=== PATIENT | female | born 1985 | race Caucasian/White ===

== ENCOUNTER 2018-03-03 12:40 | Emergency (ER) | payer OTHER, SELFPAY ==
[2018-03-03 12:41] VITALS: BP 101/63; PULSE 84; RESP 18; TEMP 36.2; O2SAT 97; BMI 37.3
[2018-03-03] MEDS: 0.9% Normal Saline 1,000 ML 125 ML IV (13:01)
[2018-03-03] MEDS: Ondansetron 4 MG/2 ML Vial IV (13:01)
[2018-03-03 13:03] LABS: Absolute Lymphocyte Count 1.03 X10^3/ul (0.83-4.51); Basophil# 0.02 X10^3/uL; Basophil% 0.3 % (0-1); Eosinophil# 0.04 X10^3/uL; Eosinophils% 0.7 % (0-5); Hematocrit 40.4 % (37-47); Hemoglobin 13.1 g/dl (12.0-15.0); Lymphocyte # 1.03 X10^3/ul (4.0); Lymphocyte % 17.7 % (19-41); Mean Corp Hgb Conc 32.4 g/gl (32-36); Mean Corpuscular Hgb 27.6 pg (27.0-32.0); Mean Corpuscular Volume 85.1 fL (81-99); Mean Platelet Vol. 9.4 fl (6.2-12.0); Monocyte# 0.78 X10^3/uL; Monocyte% 13.4 % (0-10); Neutrophil # 3.95 X10^3/uL (2.7-7.7); Neutrophil % 67.9 % (47-70); POSITIVE COUNT NO; POSITIVE DIFFERENTIAL NO; POSITIVE MORPHOLOGY NO; Platelet Count 244 K/mm3 (150-450); RBC Distribution Width CV 14.2 % (11.6-14.6); RBC Distribution Width SD 43.7 fl (35.1-43.9); Red Blood Count 4.75 M/mm3 (4.2-5.4); White Blood Count 5.8 K/mm3 (4.4-11.0)
[2018-03-03] MEDS: morphine 8 MG/ML Syringe IV (13:05)
--- NOTE | 2018-03-03 13:05 | CT_ITS ---
STUDY: CT ABDOMEN AND PELVIS WITHOUT CONTRAST REASON FOR EXAM: Female, 32 years old. ABD PAIN,N/V/D SURG-TUBAL RADIATION DOSAGE (If Supplied By Facility): CTDIvol = ( 15.99 ) mGy, DLP = ( 842.70 ) mGycm TECHNIQUE: Transaxial images were obtained from the dome of the diaphragm to the symphysis pubis without oral contrast, and without intravenous contrast. Sagittal and coronal images were reconstructed. Individualized dose optimization techniques were used for this CT. COMPARISON: None. FINDINGS: The visualized lung bases are unremarkable. The visualized portions of the heart are within normal limits. Normal liver. There are gallstones.. Normal spleen. Normal pancreas. Normal bilateral adrenal glands. Normal right kidney. Normal left kidney. Normal visualized stomach. Normal small intestine. Normal colon. The appendix is suggested but not definitely seen. No appendicitis is demonstrated.. Normal abdominal aorta. Normal inferior vena cava. Normal retroperitoneum. Normal urinary bladder. Normal abdominal wall. There is L5-S1 degenerative disc disease. CT/Abdomen/Pelvis without Cont IMPRESSION: There are gallstones. A sonogram could provide further evaluation if clinically indicated. Electronically Signed: Tisha Prater MD at 14:09 EDT , Service support ,
--- NOTE | 2018-03-03 13:08 | ED.DCSUM_ITS ---
- ER Visit Summary Date of Service: 03/03/18 Chief Complaint: [] Diffuse crampy abdominal pain since Sunday diarrhea since Sunday History of Present Illness: The patient is a 32 F [] is a past history reports symptoms as above diarrhea watery she has had no vomiting no fever symptoms have persisted. She went to [facility] emergency department twice yesterday reports she was treated each time of discharge medications her symptoms have persisted so she came in to [facility] for evaluation. She has no history of GI elements in fact she denies any past history of any kind she is on no medications denies no vaginal bleeding or vaginal discharge her urine output has been normal she has had no diarrhea today she has not been exposed anyone has been ill or bad food or antibiotics Physical Examination: [] No distress her vital signs are within normal range is a large person she takes her hand draws it in a circular fashion across her abdomen there is no focality to her complaints of pain her head neck exam unremarkable lungs are clear heart tones are normal the abdomen soft there is no rebound guarding organomegaly and no focal area of pain I can shake her abdomen it does not cause any pain her backs unremarkable upper lower extremities unremarkable she is walking in the department with no difficulty Test Results: [] Emergency Department Course and Treatment: [] The patient's screening labs and studies are generally unremarkable see those reports, the CT shows nothing acute it did note gallstones with no signs of cholecystitis on the CT nor there are any signs on the labs again her exam is this diffuse crampy pain there is no focal right upper quadrant pain right lower quadrant pain or anything else it is acute of explained the findings to her I explained the concept that the gallstones could be causing some of her symptoms or could be unrelated she will be started on Bentyl a bland diet and she will follow-up with her doctors she is scheduled to see for follow-up tomorrow and return for change in symptoms we will provide her all of her study results so the follow-up doctors have those Treatment Plan: [] Disposition: [] Home stable Impression: [] Nonspecific diffuse crampy abdominal pain with diarrhea etiology unclear, gallstones on CT This note was generated with [employer] software. It may contain incorrect words, spelling, and punctuation that were not noted in review of the chart prior to signing ED Disposition - Plan for ED Patient: Chief Complaint: Abd Pain Referrals: NOT,DEFINED [NON-STAFF] -
[2018-03-03 13:13] LABS: Bacteria 0 SEEN /hpf (None Seen); Mucous, Urine 0 SEEN /hpf (<or=2+); Red Blood Cells-Urine 0 SEEN /hpf (0-5)
[2018-03-03 13:15] LABS: Color, Urine Yellow (Yellow); Glucose, Dipstick Normal (Normal); Ketone-Dipstick Negative (Negative); Leukocyte Esterase-Dipstick 25 /ul (Negative); Nitrite-Dipstick Negative (Negative); Occult Blood-Urine 50 /ul (Negative); Protein-Dipstick 30 mg/dl (Negative); Specific Gravity, Urine 1.015 (1.002-1.030); Urine Clarity Clear (Clear); Urine Urobilinogen Normal (Normal)
[2018-03-03 13:21] LABS: Urine Bilirubin Dipstick 1 mg/dL (Negative)
[2018-03-03 13:22] LABS: Squamous Epithelial Cells - UA 0-5 SEEN /hpf (5-10); White Blood Cells 0-5 SEEN /hpf (0-5)
[2018-03-03 13:24] LABS: AST(SGOT) 23 U/L (15-37); Alanine Aminotransfer ALT/SGPT 18 U/L (13-56); Albumin, Serum 3.5 g/dL (3.2-5.0); Alkaline Phosphatase 64 U/L (45-117); Anion Gap 6 (5-15); BUN 7 mg/dL (7-18); BUN/Creat Ratio 8.8 RATIO (10-20); Chloride 106 mmol/L (98-107); EST Glomerular Filtration Rate 90 mL/min (>60); Est Glom Filt Rate - Afr Amer 109 mL/min (>60); Estimated Creatinine Clearance 99.99 ml/min; Globulin 4.2 g/dL (2.2-4.2); Glucose 95 mg/dL (74-106); Lipase 169 U/L (73-393); Potassium 3.3 mmol/L (3.5-5.1); Protein, Total 7.7 g/dL (6.4-8.2); Sodium Level 139 mmol/L (136-145)
[2018-03-03 13:29] LABS: Pregnancy, Serum, hCG Quali. NEGATIVE Negative (0-9 Nonpreg)
[2018-03-03 14:41] VITALS: BP 123/65; PULSE 65; RESP 16; O2SAT 96
--- NOTE | 2018-03-03 15:06 | ED.DEP ---
ED Disposition - Plan for ED Patient: Chief Complaint: Abd Pain Instructions: ED Abdominal Pain Unkn Cause Prescriptions: Dicyclomine HCl [Bentyl] 20 mg PO TIDAC #20 cap Referrals: NOT,DEFINED [NON-STAFF] - Additional Instructions: Follow-up with her physicians are scheduled to see tomorrow please take all of your test results from today's visit with you
[2018-03-03 15:44] VITALS: BP 123/57; PULSE 70; RESP 16; O2SAT 99
== END 2018-03-03 15:45 | disposition home or self-care (01) ==
PROVIDERS: Emergency Provider Emergency Medicine
DX: R10.84 Generalized abdominal pain (principal); R19.7 Diarrhea, unspecified; K80.80 Other cholelithiasis without obstruction
CPT/HCPCS: 74176; 80048; 80076; 81001; 83690; 84703; 85025; 96361; 96374; 96375; 99283; J7030; A4216; J2405

== ENCOUNTER 2018-03-07 23:04 | Observation (INO) | payer MEDICAID, SELFPAY ==
[2018-03-07 23:05] VITALS: BP 136/98; PULSE 98; RESP 24; TEMP 36.1; O2SAT 98; BMI 37.2
--- NOTE | 2018-03-07 23:57 | US_ITS ---
US Abdomen Limited (quadrant) INDICATION: RUQ PAIN COMPARISON: CT from March 03, 2018 TECHNIQUE: Ultrasonographic grayscale and limited Doppler investigation of the right upper quadrant FINDINGS: The liver demonstrated normal echogenicity and measures 14.4 cm. No evidence of intra-or extrahepatic biliary ductal dilatation. Common bile duct measures 6 mm. The gallbladder is contracted and contains multiple shadowing stones. Gallbladder wall measures 3 mm. Ultrasonographic Gallo sign is positive. There is no evidence of pericholecystic fluid. Visual portions of the head of the pancreas are within normal limits. Body and tail are not seen due to overlying bowel gas. The right kidney measures 13 cm in length and is without evidence of hydronephrosis. US/Gallbladder IMPRESSION: Cholelithiasis with positive ultrasonographic Gallo sign. Gallbladder is nondistended and there is no evidence of pericholecystic fluid. Consider further evaluation with no medicine hepatobiliary scan . at 0038 Reported and signed by: Erika Qureshi MD Electronically Signed: Erika Qureshi MD at 0:37 EDT Tel , Service support ,
[2018-03-07 23:59] LABS: Anion Gap 8 (5-15); BUN 11 mg/dL (7-18); BUN/Creat Ratio 14.2 RATIO (10-20); Calcium,Total 9.3 mg/dL (8.5-10.1); Chloride 105 mmol/L (98-107); Creatinine, Serum 0.78 mg/dL (0.55-1.02); EST Glomerular Filtration Rate 93 mL/min (>60); Est Glom Filt Rate - Afr Amer 112 mL/min (>60); Estimated Creatinine Clearance 102.56 ml/min; Glucose 100 mg/dL (74-106); Potassium 3.2 mmol/L (3.5-5.1); Sodium Level 134 mmol/L (136-145)
[2018-03-08] VITALS (12 sets, daily range): BP systolic 93–127; BP diastolic 47–63; PULSE 55–76; RESP 14–18; TEMP 36–36.9; O2SAT 96–100; BMI 36.1
[2018-03-08] LABS: Color, Urine Yellow (Yellow); Glucose, Dipstick Normal (Normal); Ketone-Dipstick 15 mg/dl (Negative); Leukocyte Esterase-Dipstick 25 /ul (Negative); Nitrite-Dipstick Negative (Negative); Occult Blood-Urine 50 /ul (Negative); Protein-Dipstick 30 mg/dl (Negative); Urine Clarity Sl. Cloudy (Clear); Urine Urobilinogen 1 mg/dl (Normal)
--- NOTE | 2018-03-08 | IMM_PTH ---
PATIENT: LINDA MCNEAL LOC: MS3 U#:[id number] AGE/SX: 32/F [place] [facility] [place]: Dr. Jayna Childs MD : 1985 BED: 1 DIS: 03/08/2018 SPEC #: [id number] RECD: 03/11/18 11:25 STATUS: SARA LARA #: [id number] MARCIO: 03/08/18 00:[address]: Jayna Childs DEPT: IMMUNOHISTOCHEMISTRY RECD BY: Princess Hubbard ENTERED: 03/11/18 11:26 SP TYPE: IMMUNO OTHR DR: No Primary Care Phys Tissues: A - Stomach, NOS Procedures: H Pylori (initial) PHYSICIAN & INSTITUTION [place] [id number] SPECIMEN INFORMATION: Tissue Source: A ? Antrum biopsy Clinical Info: Epigastric pain, left increased quad pain Specimen Number: [id number] CPT code: 78119 METHODOLOGY: Deparaffinized sections of prefer/formalin-fixed tissue or PAP/DQ stained slides are incubated with monoclonal/polyclonal antibodies/oligonucleotide probes. Localization is made via biotin free immunoperoxidase method. Appropriate controls are performed and reacted as expected. Results on target cell population are indicated in the following table: RESULTS: ANTIBODY / CLONE RESULT Block A H Pylori (polyclonal) positive These tests were developed and their performance characteristics determined by [facility]. They may not have been cleared or approved by the U.S. Food and Drug Administration. The FDA has determined that such clearance or approval is not necessary. INTERPRETATION: A. Antrum, biopsy: Positive for Helicobacter pylori organisms. AM:marie 03/12/18
[2018-03-08 00:02] LABS: Urine Bilirubin Dipstick 1 mg/dL (Negative)
[2018-03-08 00:05] LABS: Absolute Lymphocyte Count 2.27 X10^3/ul (0.83-4.51); Absolute Neutrophil Count 5.8 X10^3/uL (2.0-7.7); Basophil# 0.08 X10^3/uL; Basophil% 0.8 % (0-1); Eosinophil# 0.36 X10^3/uL; Eosinophils% 3.7 % (0-5); Hematocrit 43.3 % (37-47); Hemoglobin 14.8 g/dl (12.0-15.0); Lymphocyte # 2.27 X10^3/ul (4.0); Lymphocyte % 23.5 % (19-41); Mean Corp Hgb Conc 34.2 g/gl (32-36); Mean Corpuscular Hgb 27.3 pg (27.0-32.0); Mean Corpuscular Volume 79.9 fL (81-99); Mean Platelet Vol. 9.5 fl (6.2-12.0); Monocyte# 1.15 X10^3/uL; Monocyte% 11.9 % (0-10); Neutrophil # 5.79 X10^3/uL (2.7-7.7); Platelet Count 378 K/mm3 (150-450); RBC Distribution Width CV 13.6 % (11.6-14.6); Red Blood Count 5.42 M/mm3 (4.2-5.4); White Blood Count 9.7 K/mm3 (4.4-11.0)
[2018-03-08 00:08] LABS: POSITIVE COUNT NO; POSITIVE DIFFERENTIAL NO; POSITIVE MORPHOLOGY NO
[2018-03-08 00:13] LABS: Bacteria RARE /hpf (None Seen); Mucous, Urine 1+ /hpf (<or=2+); Red Blood Cells-Urine 0-5 SEEN /hpf (0-5); Squamous Epithelial Cells - UA 0-5 SEEN /hpf (5-10); White Blood Cells 0-5 SEEN /hpf (0-5)
[2018-03-08] MEDS: 0.9% Normal Saline 1,000 ML 1000 ML IV (00:30)
[2018-03-08] MEDS: Ondansetron 4 MG/2 ML Vial IV (00:30)
[2018-03-08] MEDS: HYDROmorphone 1 MG/ML Syringe IV (00:30)
[2018-03-08 01:14] LABS: Pregnancy, Serum, hCG Quali. NEGATIVE Negative (0-9 Nonpreg)
[2018-03-08 01:19] LABS: AST(SGOT) 28 U/L (15-37); Alanine Aminotransfer ALT/SGPT 43 U/L (13-56); Albumin, Serum 3.9 g/dL (3.2-5.0); Alkaline Phosphatase 68 U/L (45-117); Bilirubin, Direct 0.17 mg/dL (0.00-0.30); Globulin 3.7 g/dL (2.2-4.2); Lipase 266 U/L (73-393); Protein, Total 7.6 g/dL (6.4-8.2)
--- NOTE | 2018-03-08 03:32 | ED.VISSUMM ---
- ER Visit Summary Date of Service: 03/08/18 Chief Complaint: [Abdominal pain] History of Present Illness: The patient is a 32 F [presents to the emergency department with abdominal pain that started about a week ago. Patient rates her pain a 9 out of 10. Patient describes her pain as upper abdomen. Patient has had diarrhea for 4 days. Patient has had nausea. When the pain first started patient had vomiting. Patient has had 2 other trips to the emergency department for this and is had blood work including a CT scan of the abdomen and pelvis that showed some gallstones 6 days ago. Patient denies any fever. She denies urinary symptoms. Patient states that she took an antidiarrheal yesterday and afterwards started having black stool. Patient brought the antidiarrheal with her and it does contain bismuth.] Physical Examination: [HEENT-PERRLA, EOMI. Cranial nerves II through XII grossly intact. TMs clear. Mucous membranes moist. No adenopathy. Cardiovascular-regular rate and rhythm without murmur or ectopy Lungs-clear to auscultation, chest wall stable without crepitus or subcu emphysema Abdomen-normoactive bowel sounds, soft. Patient has tenderness palpation over the right upper quadrant and epigastric region. Patient has a positive Gallo sign. No rebound, rigidity, or peritoneal signs. Rectal exam-there was brown stool that was Hemoccult positive, no masses in the rectal vault Extremities-intact ?4, normal range of motion, normal pulses, atraumatic] Test Results: [CBC with differential obtained showed a white blood cell count of 9.7, hemoglobin 14.8, hematocrit 43, platelets 378. Chemistries unremarkable other than a slightly depressed potassium at 3.2. LFTs were normal. Lipase was 266. Urinalysis was normal. HCG was negative. Ultrasound of the gallbladder obtained showed gallstones but no evidence of pericholecystic fluid, common bile duct was 6 mm, gallbladder wall measures 3 mm.] Emergency Department Course and Treatment: [Patient was medicated with Dilaudid for pain. Patient was given Protonix IV.] Treatment Plan: [Admit] for further workup and evaluation. With continued and ongoing pain patient may warrant further evaluation with possibly HIDA scan or EGD. Most likely in the differential are biliary dyskinesia versus peptic ulcer disease/gastritis. Disposition: [Admit] Impression: [Intractable abdominal pain Cholelithiasis] This note was generated with [employer] dictation software. It may contain incorrect words, spelling, and punctuation that were not noted in review of the chart prior to signing ED Disposition - Plan for ED Patient: Chief Complaint: Abd Pain Referrals: Care Physician,No Primary [Primary Care Provider] -
--- NOTE | 2018-03-08 08:19 | PCM.HP.STD ---
History of Present Illness Date of Admission: 03/08/18 Chief Complaint: epigastric pain, n/v The patient is a 32 year old F presented to the ER due to upper abdominal pain, nausea vomiting, diarrhea. Patient states that a week ago last Sunday she noticed that she had an upset stomach she only had coffee did not really eat most the day than 8 some rice and beans at 7 PM and had nausea and vomiting which continued until Sunday. Patient did not notice any obvious abdominal pain just soreness from the nausea and vomiting. She went to the ER at [facility] on Sunday night and was given some pain meds/GI cocktail however by Sunday a.m. she began to have the crampy abdominal pain and epigastric pain and went back to the ER at [facility] on Sunday morning. CT abdomen pelvis was done which only showed some gallstones nothing else acute normal labs patient was given fluids and a GI cocktail along with some Bentyl and sent home and told to follow-up with PCP. Patient states that the Bentyl did help ease the crampiness. However she did have diarrhea which was a light brown to light green color and she was doing better initially but then she states she was weak due to the diarrhea and also had some epigastric pain. Patient did get some Kaopectate yesterday and states she had black diarrhea after taking the medication. Yesterday patient states her pain was constant and a 8/10 even when she woke up, so patient went back to the ER her labs were all within normal limits including LFTs. Patient had an ultrasound of the gallbladder which showed gallstones, no lilibeth-cholecystic fluid, per the read wall was 3 mm however my read it was less than 3 mm. Currently patient states her pain is a 4/10. But she also stated yesterday and she did have some lower abdominal pain as well. Patient denies any history of right upper quadrant pain after eating previous to last Sunday. Patient states that when she did eat yesterday her pain was worst immediately after she ate or as she thought it hit the stomach. Past Medical History Allergies No Known Allergies Allergy (Verified 03/07/18 23:04) Home Medications: Ambulatory Orders Medication Instructions Recorded Dicyclomine HCl [Bentyl] 20 mg PO TIDAC 03/08/18 Dicyclomine HCl [Bentyl] 20 mg PO TIDAC #42 cap 03/08/18 Pantoprazole Sodium [Protonix] 40 mg PO DAILY #30 tab 03/08/18 Sucralfate [Carafate] 1 gm PO 4X/DAY #120 tab 03/08/18 bismuth subsalicylate 525 mg/15 mL 525 mg PO Q30-60M PRN #354 ml 03/12/18 oral suspension metronidazole 250 mg tablet 250 mg PO Q6H #56 tab 03/12/18 ranitidine 150 mg tablet 150 mg PO BID #28 tab 03/12/18 Surgical History: tonsillectomy, - - tubal Psychiatric History: No pertinent psych hx 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 Lives: - - her 2 boys Smoking Status: Never smoker Alcohol: Occasional Drugs: None - *Family History Maternal History Items: No pertinent history Review of Systems Constitutional: Denies: Chills, Fever Eyes: Denies: Blurred vision HEENT: Denies: Difficulty Swallowing Cardiovascular: Denies: Chest Pain Respiratory: Denies: Shortness of Breath Gastrointestinal: Reports: Abdominal Pain, Diarrhea Genitourinary: Denies: Dysuria Musculoskeletal: Denies: Joint Pain Skin: Denies: Rash Neurological: Denies: Numbness, Tingling Psychiatric: Denies: Anxiety, Depression Hematologic/ Lymphatic: Denies: Easy Bruising, Easy Bleeding VTE Information - Inpt Only VTE Present on Admission: Yes VTE Mechan Device Prophylaxis: SCD's VTE Pharm Prophylaxis ordered?: No Reason prophylaxis not ordered:: Treatment Not Indicated - Physical Exam General: Alert, Oriented x3, Cooperative, No apparent distress HEENT: Atraumatic, Normocephalic Lungs: Normal air movement Cardiovascular: Regular rate Abdomen: Soft, Non Tender, Tender - LUQ & epigastic, no guarding/rebound Extremities: No clubbing, No cyanosis, No edema Skin: No rashes Neurological: Cranial nerves II-XII grossly intact Psych/Mental Status: Normal Affect Vital Signs Temp Pulse Resp BP Pulse Ox 97.8 F 60 14 99/47 L 98 03/08/18 05:32 03/08/18 05:32 03/08/18 05:32 03/08/18 05:32 03/08/18 05:32 Oxygen Delivery Method Room Air Weight: 230 lb 5 oz Body Mass Index (BMI) 36.1 Intake and Output for Last 24 Hours 03/06/18 03/07/18 03/08/18 23:59 23:59 23:59 Intake Total 234 / 234 Balance 234 / 234 Assessment/Plan 32-year-old female with left upper quadrant, epigastric abdominal pain, diarrhea, nausea and vomiting, cholelithiasis 1. Patient's abdominal pain is mostly left upper quadrant and epigastric. Her history of upper abdominal pain, nausea/vomiting/diarrhea, pain occurring right after eating or without eating is more consistent with gastric etiology like gastritis. Patient does have cholelithiasis on CT as well as ultrasound the ultrasound showed gallstones, no pericholecystic fluid and the wall is measured to be 3 mm however on my measurements the wall is less than 3 mm. Discussed with patient that her pain is likely due to gastritis versus gallstones. Discussed the typical symptoms of gallstones as well as gastric etiology with the patient as well as the anatomy concerning the gallbladder and the procedure of laparoscopic cholecystectomy. Recommend doing an EGD with biopsy today and trying to resolve her left upper quadrant pain. Discussed with patient that her gallstones may also cause her a problem in the future; however, we will will first deal with the epigastric and left upper quadrant pain likely treated with Protonix and Carafate. If she continues to have epigastric or any right upper quadrant pain about 30 minutes after eating would recommend at that time a laparoscopic cholecystectomy. Patient was agreeable with current plan. We will keep n.p.o./IV fluids until the EGD. Discussed risk including but not limited to bleeding, perforation (requiring additional procedures), and anesthesia. She had no further questions at this time is agreeable to proceed with the EGD. Jayna Childs M.D. Pager: [phone] [facility] [address] [place] [address], [address] [place] [address] Office: [phone] Code Visit OBSV E&M: 87007 Observ/hosp same date L1
--- NOTE | 2018-03-08 08:23 | HP.PCM_ITS ---
History of Present Illness Date of Admission: 03/08/18 Chief Complaint: epigastric pain, n/v The patient is a 32 year old F presented to the ER due to upper abdominal pain, nausea vomiting, diarrhea. Patient states that a week ago last Sunday she noticed that she had an upset stomach she only had coffee did not really eat most the day than 8 some rice and beans at 7 PM and had nausea and vomiting which continued until Sunday. Patient did not notice any obvious abdominal pain just soreness from the nausea and vomiting. She went to the ER at [facility] on Sunday night and was given some pain meds/GI cocktail however by Sunday a.m. she began to have the crampy abdominal pain and epigastric pain and went back to the ER at [facility] on Sunday morning. CT abdomen pelvis was done which only showed some gallstones nothing else acute normal labs patient was given fluids and a GI cocktail along with some Bentyl and sent home and told to follow-up with PCP. Patient states that the Bentyl did help ease the crampiness. However she did have diarrhea which was a light brown to light green color and she was doing better initially but then she states she was weak due to the diarrhea and also had some epigastric pain. Patient did get some Kaopectate yesterday and states she had black diarrhea after taking the medication. Yesterday patient states her pain was constant and a 8/10 even when she woke up, so patient went back to the ER her labs were all within normal limits including LFTs. Patient had an ultrasound of the gallbladder which showed gallstones, no lilibeth-cholecystic fluid, per the read wall was 3 mm however my read it was less than 3 mm. Currently patient states her pain is a 4/10. But she also stated yesterday and she did have some lower abdominal pain as well. Patient denies any history of right upper quadrant pain after eating previous to last Sunday. Patient states that when she did eat yesterday her pain was worst immediately after she ate or as she thought it hit the stomach. Past Medical History Allergies No Known Allergies Allergy (Verified 03/07/18 23:04) Home Medications: Ambulatory Orders Medication Instructions Recorded Dicyclomine HCl [Bentyl] 20 mg PO TIDAC 03/08/18 Dicyclomine HCl [Bentyl] 20 mg PO TIDAC #42 cap 03/08/18 Pantoprazole Sodium [Protonix] 40 mg PO DAILY #30 tab 03/08/18 Sucralfate [Carafate] 1 gm PO 4X/DAY #120 tab 03/08/18 bismuth subsalicylate 525 mg/15 mL 525 mg PO Q30-60M PRN #354 ml 03/12/18 oral suspension metronidazole 250 mg tablet 250 mg PO Q6H #56 tab 03/12/18 ranitidine 150 mg tablet 150 mg PO BID #28 tab 03/12/18 Surgical History: tonsillectomy, - - tubal Psychiatric History: 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 Lives: - - her 2 boys Smoking Status: Never smoker Alcohol: Occasional Drugs: None - *Family History Maternal History Items: No pertinent history Review of Systems Constitutional: Denies: Chills, Fever Eyes: Denies: Blurred vision HEENT: Denies: Difficulty Swallowing Cardiovascular: Denies: Chest Pain Respiratory: Denies: Shortness of Breath Gastrointestinal: Reports: Abdominal Pain, Diarrhea Genitourinary: Denies: Dysuria Musculoskeletal: Denies: Joint Pain Skin: Denies: Rash Neurological: Denies: Numbness, Tingling Psychiatric: Denies: Anxiety, Depression Hematologic/ Lymphatic: Denies: Easy Bruising, Easy Bleeding VTE Information - Inpt Only VTE Present on Admission: Yes VTE Mechan Device Prophylaxis: SCD's VTE Pharm Prophylaxis ordered?: No Reason prophylaxis not ordered:: Treatment Not Indicated - Physical Exam General: Alert, Oriented x3, Cooperative, No apparent distress HEENT: Atraumatic, Normocephalic Lungs: Normal air movement Cardiovascular: Regular rate Abdomen: Soft, Non Tender, Tender - LUQ & epigastic, no guarding/rebound Extremities: No clubbing, No cyanosis, No edema Skin: No rashes Neurological: Cranial nerves II-XII grossly intact Psych/Mental Status: Normal Affect Vital Signs Temp Pulse Resp BP Pulse Ox 97.8 F 60 14 99/47 L 98 03/08/18 05:32 03/08/18 05:32 03/08/18 05:32 03/08/18 05:32 03/08/18 05:32 Oxygen Delivery Method Room Air Weight: 230 lb 5 oz Body Mass Index (BMI) 36.1 Intake and Output for Last 24 Hours 03/06/18 03/07/18 03/08/18 23:59 23:59 23:59 Intake Total 234 / 234 Balance 234 / 234 Assessment/Plan 32-year-old female with left upper quadrant, epigastric abdominal pain, diarrhea , nausea and vomiting, cholelithiasis 1. Patient's abdominal pain is mostly left upper quadrant and epigastric. Her history of upper abdominal pain, nausea/vomiting/diarrhea, pain occurring right after eating or without eating is more consistent with gastric etiology like gastritis. Patient does have cholelithiasis on CT as well as ultrasound the ultrasound showed gallstones, no pericholecystic fluid and the wall is measured to be 3 mm however on my measurements the wall is less than 3 mm. Discussed with patient that her pain is likely due to gastritis versus gallstones. Discussed the typical symptoms of gallstones as well as gastric etiology with the patient as well as the anatomy concerning the gallbladder and the procedure of laparoscopic cholecystectomy. Recommend doing an EGD with biopsy today and trying to resolve her left upper quadrant pain. Discussed with patient that her gallstones may also cause her a problem in the future; however, we will will first deal with the epigastric and left upper quadrant pain likely treated with Protonix and Carafate. If she continues to have epigastric or any right upper quadrant pain about 30 minutes after eating would recommend at that time a laparoscopic cholecystectomy. Patient was agreeable with current plan. We will keep n.p.o./IV fluids until the EGD. Discussed risk including but not limited to bleeding, perforation ( requiring additional procedures), and anesthesia. She had no further questions at this time is agreeable to proceed with the EGD. Jayna Childs M.D. Pager: [phone] [facility] [address] [place] [address], [address] [place] [address] Office: [phone] Code Visit OBSV E&M: 10460 Observ/hosp same date L1
--- NOTE | 2018-03-08 13:02 | GASB_PTH ---
PATIENT: LINDA MCNEAL LOC: [facility] U#:[id number] AGE/SX: 32/F ROOM: [facility] – [place], [place] RE03/08/[address]: Dr. Jayna Childs MD : [id number] BED: 1 DIS: 03/08/2018 SPEC #: [id number] RECD: 03/08/18 14:28 STATUS: SARA MARCO #: [id number] MARCIO: 03/08/18 13:[address]: Jayna Childs DEPT: SURGICAL PATHOLOGY RECD BY: Chin Strauss ENTERED: 03/08/18 14:29 SP TYPE: Gastric Bx OTHR DR: No Primary Care Phys Tissues: A - Gastric mucous membrane B - Gastric mucous membrane Procedures: Surgery Specimen Level IV HEADER OPERATION: EGD with biopsy PRE-OP DIAGNOSIS: Epigastric pain, Left increased quad pain TISSUE SUBMITTED: A ? Antrum biopsy for H. pylori and path, B ? GE junction MICROSCOPIC DIAGNOSIS A. Gastric antrum, biopsy: Moderate chronic gastritis with focal acute vasculitis. Positive for Helicobacter pylori. B. Gastroesophageal junction, biopsy: Mild chronic inflammation. Focal changes of reflux. No evidence of intestinal metaplasia or dysplasia. AM:marie 03/11/18 COMMENT A. The results of immunohistochemistry for Helicobacter pylori will be reported separately ([id number]). MICROSCOPIC DESCRIPTION Slides are reviewed. GROSS DESCRIPTION A - Received in fixative is one container labeled with the patient's name and designated antrum biopsy. The specimen consists of two irregular fragments of light leigh soft tissue that in aggregate measure 0.5 x 0.3 x 0.1 cm. The specimen is totally submitted in one cassette. B - Received in fixative is one container labeled with the patient's name and designated GE junction. The specimen consists of multiple irregular fragments of light leigh soft tissue that in aggregate measure 0.5 x 0.2 x 0.1 cm. The specimen is totally submitted in one cassette. / AM:marie 03/08/18 TC:2 CPT: 89793 x2
--- NOTE | 2018-03-08 13:11 | PCM.OPRPT ---
Report of Operation Date of Procedure: 03/08/18 Pre-Operative Diagnosis: Epigastric and left upper quadrant pain Post-Operative Diagnosis: Gastritis, GERD Surgery/Procedure Performed:: EGD with biopsy Type of Anesthesia:: MAC Anesthesiologist: Parish Mcwilliams Specimen's removed: 1. Antrum biopsy, 2. GE junction biopsy Estimated Blood Loss (mL): Minimal Description of Procedure: Procedure: EGD After obtaining informed consent, the endoscope was passed under direct visualization. Throughout the procedure, patient's blood pressure, pulse, oxygen saturations were monitored continuously by anesthesia. The endoscope was introduced through the mouth and advanced to the 2nd part of the duodenum. The upper GI endoscopy was accomplished without difficulty. Patient tolerated procedure well. Findings: Erythematous mucosa found gastric antrum and gastric body the antrum was biopsied with cold forceps biopsy for histology and H. pylori. There is also mild mucosal change at the GE junction which was also biopsied with cold forceps. The duodenum was normal. Impression: 1. GERD: Mild mucosal change at GE junction. Biopsied 2. Gastritis: Erythematous mucosa in the and antrum. Biopsied. 3. Normal examined duodenum Recommendations: We will start patient on Carafate as well as continue Protonix for PPI. Patient will be able to be discharged after tolerating clears and follow-up in the office in 1-2 weeks. - Complications none
--- NOTE | 2018-03-08 13:19 | PCM.DC.GS ---
Discharge Diet: - - Start with clears and advance to a light diet recommend avoiding fatty/spicy/greasy foods Discharge Activity: Return to Normal Activity Allergies/Adverse Reactions: Allergies No Known Allergies Allergy (Verified 03/07/18 23:04) Medications to take at Discharge Dicyclomine HCl [Bentyl] 20 mg PO TIDAC 03/08/18 Pantoprazole Sodium [Protonix] 40 mg PO DAILY #30 tab 03/08/18 Sucralfate [Carafate] 1 gm PO 4X/DAY #120 tab 03/08/18 The following prescriptions were given: Pantoprazole Sodium [Protonix] 40 mg PO DAILY #30 tab Sucralfate [Carafate] 1 gm PO 4X/DAY #120 tab Primary Care Physician: Care Physician,No Primary [Primary Care Provider] - Please Follow Up With: Jayna Childs MD When: call office [phone] for f/u appt in 1-2 weeks Proposed Discharge Date: 03/08/18
--- NOTE | 2018-03-08 13:22 | DCINST_ITS ---
Discharge Diet: - - Start with clears and advance to a light diet recommend avoiding fatty/spicy/greasy foods Discharge Activity: Return to Normal Activity Allergies/Adverse Reactions: Allergies No Known Allergies Allergy (Verified 03/07/18 23:04) Medications to take at Discharge Dicyclomine HCl [Bentyl] 20 mg PO TIDAC 03/08/18 Pantoprazole Sodium [Protonix] 40 mg PO DAILY #30 tab 03/08/18 Sucralfate [Carafate] 1 gm PO 4X/DAY #120 tab 03/08/18 The following prescriptions were given: Pantoprazole Sodium [Protonix] 40 mg PO DAILY #30 tab Sucralfate [Carafate] 1 gm PO 4X/DAY #120 tab Primary Care Physician: Care Physician,No Primary [Primary Care Provider] - Please Follow Up With: Jayna Childs MD When: call office [phone] for f/u appt in 1-2 weeks Proposed Discharge Date: 03/08/18
[2018-03-08] MEDS: Sucralfate 1 GM Tablet PO (14:05)
== END 2018-03-08 16:18 | disposition home or self-care (01) ==
LOC: ED 03-08 03:33 → MS3 03-08 04:47
PROVIDERS: Admitting Provider Surgery; Emergency Provider Emergency Medicine; Visit Provider Surgery
PROC: 0DJ08ZZ Inspection of Upper Intestinal Tract, Via Natural or Artificial Opening Endoscopic (ICD-10-PCS; CPT 43235; principal; 2018-03-08 11:55)
DX: K29.50 Unspecified chronic gastritis without bleeding (principal); K21.9 Gastro-esophageal reflux disease without esophagitis; K80.20 Calculus of gallbladder without cholecystitis without obstruction; Z79.899 Other long term (current) drug therapy
CPT/HCPCS: 43239; 76705; 80048; 80076; 81001; 82274; 83690; 84703; 85025; 88305; 88342; 96361; 96365; 96375; 99218; 99285; J7030; J7050; J7120; A4216; G0378; J2405